=== PATIENT | female | born 1990 | race Caucasian/White ===

== ENCOUNTER 2017-07-05 21:21 | Emergency (ER) | payer OTHER ==
[2017-07-05] MEDS ORDERED: Sodium Chloride 0.9% 1,000 ML PRIMARY IV ONE (21:53)
[2017-07-05] MEDS ORDERED: diphenhydrAMINE 50 MG/1 ML VIAL IVP ONE (21:53)
[2017-07-05] MEDS ORDERED: ONDANSETRON 4 MG/2 ML VIAL IVP ONE (21:53)
[2017-07-05] MEDS ORDERED: KETOROLAC 30 MG/1 ML VIAL IVP ONE (21:53)
[2017-07-05] MEDS ORDERED: NORMAL SALINE 10 ML SYRINGE FLUSH IVP PRN (21:53)
[2017-07-05 21:59] VITALS: RESP 18; TEMP 97.1
[2017-07-05 22:06] LABS: BLOOD UREA NITROGEN 11 mg/dL (7-22); BUN/CREATININE RATIO 15.71 (6-20); CALCIUM 8.9 mg/dL (8.7-10.7); EST GLOMERULAR FILTRATION > 60 (>60 ml/min/1.73m(2))
[2017-07-05 22:07] LABS: HEMATOCRIT 40.9 % (37.0-47.0); HEMOGLOBIN 14.3 g/dL (12.0-16.0); MEAN CORPUSCULAR HEMOGLOBIN 29.7 PG (27-31); MEAN PLATELET VOLUME 9.6 FL (7.4-12.2); RED BLOOD COUNT 4.81 10^6/uL (4.20-5.40)
[2017-07-05 22:22] LABS: PLATELET MORPHOLOGY COMMENT NORMAL MORPHOLOGY (NORM); RBC MORPHOLOGY COMMENT NORMAL MORPHOLOGY (NORM); WBC MORPHOLOGY COMMENT NORMAL MORPHOLOGY (NORM)
[2017-07-05 22:24] LABS: BAND NEUTROPHILS % 0 % (0-10); BASOPHILS % (MANUAL) 1 % (0-1); EOSINOPHILS % (MANUAL) 4 % (0-8); LYMPHOCYTES % (MANUAL) 30 % (10-50); MONOCYTES % (MANUAL) 5 % (0-12); NEUTROPHILS % (MANUAL) 60 % (50-80)
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
== END 2017-07-05 23:30 | disposition home or self-care (01) ==
LOC: ER 21:21
DX: R51 Headache (principal); R11.2 Nausea with vomiting, unspecified; T67.5XXA Heat exhaustion, unspecified, initial encounter
CPT/HCPCS: 80053; 85007; 96361; 96374; 96375; 99283 ×2; J1200; J1885; J2405; J7030